=== PATIENT | female | born 1965 | race African-American/Black ===

== ENCOUNTER 2019-11-14 15:50 | Emergency (ER) | payer OTHER ==
[~2019-11-14] VITALS: Ht 177.8 cm; Wt 93.4 kg
[~2019-11-14 15:50] MED LIST: BACTRIM DS TAB1 EACH; CLEOCIN HCL300 MG PO; HYDROCODONE-AP1 EAC6; ZANTAC 150MG T150 MG PO; ZESTRIL20 MG PO
[2019-11-14] MEDS ORDERED: ASA81BEC PO (16:20)
[2019-11-14] MEDS ORDERED: FLEXERIL PO (17:49)
[2019-11-14] MEDS ORDERED: NAPROSYN500 MG PO (17:49)
[2019-11-14 18:47] VITALS: BP 147/89
== END 2019-11-14 18:48 | disposition home or self-care (01) ==
LOC: M.ERS 15:50
DX: S16.1XXA Strain of muscle, fascia and tendon at neck level, initial encounter (principal); S29.012A Strain of muscle and tendon of back wall of thorax, initial encounter; I10 Essential (primary) hypertension; J45.909 Unspecified asthma, uncomplicated; Z98.890 Other specified postprocedural states; V49.59XA Passenger injured in collision with other motor vehicles in traffic accident, initial encounter; Y92.89 Other specified places as the place of occurrence of the external cause; Y93.89 Activity, other specified; Y99.8 Other external cause status

== ENCOUNTER 2020-03-11 11:49 | Emergency (ER) | payer OTHER ==
[~2020-03-11] VITALS: Ht 177.8 cm; Wt 81.7 kg
[~2020-03-11 11:49] MED LIST changes: +ASA81BEC PO; +FLEXERIL PO; +NAPROSYN500 MG PO
[2020-03-11 12:07] LABS: URINE BILIRUBIN NEGATIVE (Negative); URINE BLOOD NEGATIVE (Negative); URINE CLARITY CLEAR; URINE COLOR YELLOW; URINE GLUCOSE-RANDOM NEGATIVE (Negative); URINE KETONES 2+ (Negative); URINE LEUKOCYTES-REFLEX NEGATIVE (Negative); URINE NITRITE-REFLEX NEGATIVE (Negative); URINE PROTEIN TRACE (Negative); URINE SPECIFIC GRAVITY 1.025 (1.005-1.030)
[2020-03-11 12:19] LABS: ABSOLUTE BASOPHILS 0.1 thou/uL (0.0-0.2); ABSOLUTE LYMPHOCYTES 1.5 thou/uL (0.8-5.3); ABSOLUTE MONOCYTES 0.8 thou/uL (0.0-1.2); ABSOLUTE NEUTROPHILS 8.7 thou/uL (1.6-8.1); BASOPHILS 0.6 %; EOSINOPHILS 0.4 %; HEMOGLOBIN 13.3 gm/dL (12.0-15.0); LYMPHOCYTES 13.2 %; MCH 30.8 pg (26.0-34.0); MCV 90.5 fL (80.0-100.0); MONOCYTES 7.2 %; MPV 7.8 fl. (7.2-11.1); NUCLEATED RBCS 0 /100WBC; PLATELET COUNT* 331 thou/uL (150-400); POLYS 78.6 %; RBC 4.31 mil/uL (4.20-5.00); RDW-CV 15.9 % (10.5-14.5); WBC 11.1 thou/uL (4.0-11.0)
[2020-03-11 12:30] LABS: CALCIUM 9.1 mg/dL (8.5-10.1); CREATININE 0.8 mg/dL (0.6-1.3); POTASSIUM 3.8 mmol/L (3.5-5.1)
[2020-03-11 12:34] LABS: ALBUMIN 3.9 g/dL (3.4-5.0); TOTAL BILIRUBIN 0.5 mg/dL (<0.1-1.0); TOTAL PROTEIN 8.8 g/dL (6.4-8.2)
--- NOTE | 2020-03-11 13:08 | EKG ---
[place] [id number] ELECTROCARDIOGRAM REPORT Name: BRISEIDA LIANGKIT Neela Room: [facility]#: [id number] Admission: 03/11/20 Attend Phys: Discharge: Date of : 63 Date of Service: 03/11/20 1217 Report #: [id number] THIS REPORT FOR: //name// [facility] ED Test Date: 2020-03-11 Test Time: 12:17:44 Pat Name: KIT LIANG Department: Room: Gender: F [employer]: [facility] : 1965 Requested By: Steven Cutler Order Number: [id number] MD: Rj Londono Measurements Intervals [place] Rate: 54 P: 35 [place]: 143 QRS: 41 QRSD: 98 T: 43 QT: 434 QTc: 412 Interpretive Statements Sinus bradycardia Probable left ventricular hypertrophy Anterior ST elevation, probably due to LVH No previous ECG available for comparison Electronically Signed On 03-11-2020 13:06:29 CDT by Rj Londono [email or web address] <ELECTRONICALLY SIGNED> By: Rj Londono MD, MERGED WITH [facility] 03/11/20 1306 16 Rj Londono MD, MERGED WITH [facility] /EPI
[2020-03-11] MEDS ORDERED: ONDANSETRON ODT4 MG PO (14:16)
[2020-03-11 14:34] VITALS: BP 168/88
== END 2020-03-11 14:37 | disposition home or self-care (01) ==
LOC: M.ERS 11:49
PROVIDERS: Family Medicine
DX: R11.2 Nausea with vomiting, unspecified (principal); N85.8 Other specified noninflammatory disorders of uterus; I10 Essential (primary) hypertension; J45.909 Unspecified asthma, uncomplicated; Z79.82 Long term (current) use of aspirin; Z88.1 Allergy status to other antibiotic agents